=== PATIENT | male | born 1960 | race American Indian/Alaskan Native ===

== ENCOUNTER 2022-04-11 02:38 | Emergency (ER) | payer SELFPAY ==
[2022-04-11 08:32] VITALS: BP 164/91
--- NOTE | 2022-04-11 08:48 | Emergency Department Report ---
ED Extremity Problem HPI - General Chief complaint: Extremity Injury, Lower Stated complaint: RT FOOT SWOLLEN Source: patient Mode of arrival: Ambulatory Limitations: No Limitations - History of Present Illness Initial comments: 62-year-old male presents to the ED complaining of right foot pain x5 days. Patient states that he has a history of gout. He states pain is a current 7 out of 8. Patient states that he is able to ambulate with crutches. He states that he has gout attack when he eats red meat. Patient denies any fever or chills. Patient denies any numbness or tingling. He has obvious swelling in the right foot. Patient denies any numbness or tingling. Patient has no obvious distracting injury. No obvious deformity noted. Patient alert and oriented x3. No acute distress noted .no ill appearance noted MD Complaint: extremity pain, extremity swelling Severity scale (0 -10): 7 - Related Data Previous Rx's Medication Instructions Recorded Last Taken Type Naproxen [Naprosyn] 500 mg PO BID 15 Days #30 tablet 04/11/22 Unknown Rx Allergies Allergy/AdvReac Type Severity Reaction Status Date / Time No Known Allergies Allergy Unverified 04/11/22 02:52 ED Review of Systems ROS: Stated complaint: RT FOOT SWOLLEN Other details as noted in HPI Constitutional: denies: chills, fever Eyes: denies: eye pain, eye discharge, vision change ENT: denies: ear pain, throat pain Respiratory: denies: cough, shortness of breath, wheezing Cardiovascular: denies: chest pain, palpitations Endocrine: no symptoms reported Gastrointestinal: denies: abdominal pain, nausea, diarrhea Genitourinary: denies: urgency, dysuria Musculoskeletal: denies: back pain, joint swelling, arthralgia Skin: denies: rash, lesions Neurological: denies: headache, weakness, paresthesias Psychiatric: denies: anxiety, depression Hematological/Lymphatic: denies: easy bleeding, easy bruising ED Past Medical Hx - Medications Home Medications: Home Medications Medication Instructions Recorded Confirmed Last Taken Type Naproxen [Naprosyn] 500 mg PO BID 15 Days #30 tablet 04/11/22 Unknown Rx ED Physical Exam - General Limitations: No Limitations General appearance: alert, in no apparent distress - Head Head exam: Present: atraumatic, normocephalic - Eye Eye exam: Present: normal appearance - ENT ENT exam: Present: mucous membranes moist - Neck Neck exam: Present: normal inspection - Respiratory Respiratory exam: Present: normal lung sounds bilaterally. Absent: respiratory distress - Cardiovascular Cardiovascular Exam: Present: regular rate, normal rhythm. Absent: systolic murmur, diastolic murmur, rubs, gallop - GI/Abdominal GI/Abdominal exam: Present: soft, normal bowel sounds - Rectal Rectal exam: Present: deferred - Extremities Exam Extremities exam: Present: normal inspection - Back Exam Back exam: Present: normal inspection - Neurological Exam Neurological exam: Present: alert, oriented X3 - Psychiatric Psychiatric exam: Present: normal affect, normal mood - Skin Skin exam: Present: warm, dry, intact, normal color. Absent: rash ED Course Vital Signs 04/11/22 04/11/22 02:53 08:31 Temperature 97.5 F L 98.4 F Pulse Rate 81 59 L Respiratory 18 98 H Rate Blood Pressure 150/83 Blood Pressure 164/91 [Left] O2 Sat by Pulse 93 98 Oximetry ED Medical Decision Making - Medical Decision Making 62-year-old male presents to the ED complaining of right foot pain x5 days. Patient states that he has a history of gout. He states pain is a current 7 out of 8. Patient states that he is able to ambulate with crutches. He states that he has gout attack when he eats red meat. Patient denies any fever or chills. Patient denies any numbness or tingling. He has obvious swelling in the right foot. Patient denies any numbness or tingling. Patient has no obvious distracting injury. No obvious deformity noted. Patient alert and oriented x3. No acute distress noted .no ill appearance noted. Physical examination patient had mild swelling noted to the right foot. Rechecked the patient is resting quietly quietly and comfortable and feeling better. I discussed the results of diagnostic study, my clinical impression and the plan for further treatment with the patient. Patient agrees with plan and discharge at this present time. All question addressed. I have given the patient instruction regarding a diagnosis ,expectation ,follow- up and return precaution. I explained to the patient that emergent condition may arise and to return to the ED for new worsen and any new persisting condition. I have explained the importance of following up with the primary care physician or referral physician listed below has instructed. The patient verbalized understanding of discharge instruction. Critical care attestation.: If time is entered above; I have spent that time in minutes in the direct care of this critically ill patient, excluding procedure time. ED Disposition Clinical Impression: Gout attack Qualifiers: Gout site: foot Gout etiology: unspecified cause Laterality: right Qualified Code(s): M10.9 - Gout, unspecified Disposition: HOME / SELF CARE / HOMELESS Is pt being admited?: No Does the pt Need Aspirin: No Condition: Stable Instructions: Low-Purine Eating Plan, Uric Acid Nephropathy Additional Instructions: Return to the ED for any worsening symptoms Follow-up with your primary care doctor Prescriptions: Naproxen [Naprosyn] 500 mg PO BID 15 Days #30 tablet Referrals: PRIMARY CARE, [Primary Care Provider] - 3-5 Days [facility] [Provider Group] - 3-5 Days Forms: Work/School Release Form(ED) Time of Disposition: 09:02
[2022-04-11] MEDS ORDERED: KETOROLAC 30 MG/1 ML INJ IM ONE (09:02)
[2022-04-11] MEDS ORDERED: dexAMETHasone 20 MG/5 ML VIAL IM ONE (09:02)
== END 2022-04-11 09:21 | disposition home or self-care (01) ==
LOC: ED 02:38
DX: M10.9 Gout, unspecified (principal)
CPT/HCPCS: 96372; 99282; J1100; J1885